=== PATIENT | male | born 1975 | race Caucasian/White ===

== ENCOUNTER 2020-12-20 18:34 | Inpatient (IN) | payer OTHER ==
[2020-12-20 19:19] VITALS: BMI 19.2
[2020-12-20] MEDS ORDERED: MAGNESIUM CITRATE 300 ML BOTTLE PO PRN (20:56)
[2020-12-20] MEDS ORDERED: MAGNESIUM HYDROX 2400MG/30ML ORAL SUSPENSION 30 ML CUP PO PRN (20:56)
[2020-12-20] MEDS ORDERED: NICOTINE POLACRILEX 2 MG GUM BC PRN (20:56)
[2020-12-20] MEDS ORDERED: LOPERAMIDE HCL 2 MG CAPSULE PO PRN (20:56)
[2020-12-20] MEDS ORDERED: P-EPHED 60MG/TRIPROLIDI 2.5MG TABLET PO PRN (20:56)
[2020-12-20] MEDS ORDERED: guaiFENesin 200 MG/10 ML 10 ML UNIT-DOSE CUPS PO PRN (20:56)
[2020-12-20] MEDS ORDERED: MAG HYDROX/AL HYDROX/SIMETH 30 ML UNIT-DOSE CUP PO PRN (20:56)
[2020-12-20] MEDS ORDERED: cloNIDine HCL 0.1 MG TABLET PO ONE (21:07)
[2020-12-20] MEDS ORDERED: MELATONIN 5 MG TABLETS PO SCH (22:00)
[2020-12-20] MEDS ORDERED: cloNIDine HCL 0.1 MG TABLET ONE (22:03)
[2020-12-20] MEDS: THIAMINE HCL 100 MG TABLET (FP) PO SCH (22:08)
[2020-12-20] MEDS ORDERED: TUBERCULIN PPD 5 TU/0.1ML VIAL ID ONE (23:20)
[2020-12-21] MEDS: PRENATAL VITAMINS W/ FOLIC ACID TABLET (FP) PO SCH (10:09)
[2020-12-21] MEDS: NICOTINE 21 MG/24 HOURS TOPICAL PATCH TD SCH (10:09)
[2020-12-21] MEDS: methaDONE HCL 40 MG DISPERSABLE TABLET PO SCH (10:10)
[2020-12-21 10:19] LABS: HEMATOCRIT 40.4 % (35.4-49); HEMOGLOBIN 13.8 GM/dL (11.7-16.9); MCH 31.9 pg (25.7-33.7); MCHC 34.1 g/dl (32.0-35.9); MEAN CELL VOLUME 93.7 fl (80-96); MEAN PLT VOLUME 7.8 fl (7.5-11.1); PLATELET COUNT 252 10^3/uL (134-434); RBC 4.31 M/mm3 (4.00-5.60); RDW 13.9 % (11.9-15.9); WHITE BLOOD COUNT 6.5 K/mm3 (4.0-10.0)
[2020-12-21 10:30] LABS: BLOOD UREA NITROGEN 21.2 mg/dL (7-18); CALCIUM 9.8 mg/dL (8.5-10.1)
[2020-12-21 10:33] LABS: CREATININE 0.8 mg/dL (0.55-1.3)
[2020-12-21 10:35] LABS: BILIRUBIN,TOTAL 0.3 mg/dL (0.2-1); TOT PROT 8.6 g/dl (6.4-8.2)
[2020-12-21 10:41] LABS: URINE APPEARANCE CLEAR; URINE BILIRUBIN NEGATIVE (NEGATIVE); URINE COLOR YELLOW; URINE GLUCOSE (UA) NEGATIVE (NEGATIVE); URINE KETONE TRACE (NEGATIVE); URINE LEUK ESTERASE NEGATIVE (NEGATIVE); URINE NITRITE NEGATIVE (NEGATIVE); URINE PROTEIN NEGATIVE (NEGATIVE); URINE UROBILINOGEN 0.2 mg/dL (0.2-1.0)
[2020-12-21] MEDS: NICOTINE 10 MG CARTRIDGE (INHALER) IH PRN (13:40)
[2020-12-21] MEDS: IBUPROFEN 400 MG TABLET (FP) PO PRN (17:10)
[2020-12-21] MEDS: QUEtiapine FUMARATE 100 MG TABLET (FP) PO SCH (21:23)
[2020-12-21] MEDS: THIAMINE HCL 100 MG TABLET (FP) PO SCH (21:23)
[2020-12-22] MEDS: methaDONE HCL 40 MG DISPERSABLE TABLET PO SCH (06:31)
[2020-12-22] MEDS: IBUPROFEN 400 MG TABLET (FP) PO PRN ×3 (06:33→21:14)
[2020-12-22] MEDS: NICOTINE 10 MG CARTRIDGE (INHALER) IH PRN ×4 (06:34→21:15)
[2020-12-22] MEDS: NICOTINE 21 MG/24 HOURS TOPICAL PATCH TD SCH (10:07)
[2020-12-22] MEDS: PRENATAL VITAMINS W/ FOLIC ACID TABLET (FP) PO SCH (10:07)
[2020-12-22] MEDS: THIAMINE HCL 100 MG TABLET (FP) PO SCH (21:14)
[2020-12-22] MEDS: QUEtiapine FUMARATE 100 MG TABLET (FP) PO SCH (21:14)
[2020-12-23] MEDS: methaDONE HCL 40 MG DISPERSABLE TABLET PO SCH (06:42)
[2020-12-23] MEDS: IBUPROFEN 400 MG TABLET (FP) PO PRN ×3 (06:43→21:13)
[2020-12-23] MEDS: NICOTINE 10 MG CARTRIDGE (INHALER) IH PRN ×5 (06:43→21:13)
[2020-12-23] MEDS: NICOTINE 21 MG/24 HOURS TOPICAL PATCH TD SCH (10:02)
[2020-12-23] MEDS: PRENATAL VITAMINS W/ FOLIC ACID TABLET (FP) PO SCH (10:02)
[2020-12-23] MEDS: QUEtiapine FUMARATE 100 MG TABLET (FP) PO SCH (21:12)
[2020-12-23] MEDS: THIAMINE HCL 100 MG TABLET (FP) PO SCH (21:12)
[2020-12-24] MEDS: NICOTINE 10 MG CARTRIDGE (INHALER) IH PRN ×4 (06:40→19:48)
[2020-12-24] MEDS: methaDONE HCL 40 MG DISPERSABLE TABLET PO SCH (06:40)
[2020-12-24] MEDS: IBUPROFEN 400 MG TABLET (FP) PO PRN ×2 (07:02→13:21)
[2020-12-24] MEDS: NICOTINE 21 MG/24 HOURS TOPICAL PATCH TD SCH (09:58)
[2020-12-24] MEDS: PRENATAL VITAMINS W/ FOLIC ACID TABLET (FP) PO SCH (09:58)
[2020-12-24] MEDS: ACETAMINOPHEN 325 MG TABLET (FP) PO PRN ×2 (09:59→21:02)
[2020-12-24] MEDS: THIAMINE HCL 100 MG TABLET (FP) PO SCH (21:02)
[2020-12-24] MEDS: QUEtiapine FUMARATE 100 MG TABLET (FP) PO SCH (21:02)
[2020-12-25] MEDS: methaDONE HCL 40 MG DISPERSABLE TABLET PO SCH (06:16)
[2020-12-25] MEDS: IBUPROFEN 400 MG TABLET (FP) PO PRN ×2 (06:16→14:13)
[2020-12-25] MEDS: NICOTINE 10 MG CARTRIDGE (INHALER) IH PRN ×5 (06:16→22:27)
[2020-12-25] MEDS: NICOTINE 21 MG/24 HOURS TOPICAL PATCH TD SCH (10:33)
[2020-12-25] MEDS: ACETAMINOPHEN 325 MG TABLET (FP) PO PRN ×2 (10:33→21:24)
[2020-12-25] MEDS: PRENATAL VITAMINS W/ FOLIC ACID TABLET (FP) PO SCH (10:33)
[2020-12-25] MEDS: QUEtiapine FUMARATE 100 MG TABLET (FP) PO SCH (21:24)
[2020-12-25] MEDS: THIAMINE HCL 100 MG TABLET (FP) PO SCH (21:24)
[2020-12-26] MEDS: IBUPROFEN 400 MG TABLET (FP) PO PRN ×3 (06:40→21:15)
[2020-12-26] MEDS: methaDONE HCL 40 MG DISPERSABLE TABLET PO SCH (06:40)
[2020-12-26] MEDS: NICOTINE 10 MG CARTRIDGE (INHALER) IH PRN ×5 (06:40→21:58)
[2020-12-26] MEDS: PRENATAL VITAMINS W/ FOLIC ACID TABLET (FP) PO SCH (09:56)
[2020-12-26] MEDS: NICOTINE 21 MG/24 HOURS TOPICAL PATCH TD SCH (09:56)
[2020-12-26] MEDS: ACETAMINOPHEN 325 MG TABLET (FP) PO PRN ×2 (09:57→18:31)
[2020-12-26] MEDS: traZODone HCL 100 MG TABLET (FP) PO SCH (21:14)
[2020-12-26] MEDS: THIAMINE HCL 100 MG TABLET (FP) PO SCH (21:15)
[2020-12-27] MEDS: methaDONE HCL 40 MG DISPERSABLE TABLET PO SCH (07:04)
[2020-12-27] MEDS: IBUPROFEN 400 MG TABLET (FP) PO PRN ×2 (07:06→16:33)
[2020-12-27] MEDS: PRENATAL VITAMINS W/ FOLIC ACID TABLET (FP) PO SCH (10:35)
[2020-12-27] MEDS: NICOTINE 21 MG/24 HOURS TOPICAL PATCH TD SCH (10:35)
[2020-12-27] MEDS: ACETAMINOPHEN 325 MG TABLET (FP) PO PRN ×2 (10:36→21:14)
[2020-12-27] MEDS: FOLIC ACID 1 MG TABLET (FP) PO SCH (10:36)
[2020-12-27] MEDS: NICOTINE 10 MG CARTRIDGE (INHALER) IH PRN ×3 (10:37→21:15)
[2020-12-27] MEDS: CYANOCOBALAMIN (VITAMIN B-12) 100 MCG TABLET PO SCH (10:37)
[2020-12-27] MEDS: traZODone HCL 100 MG TABLET (FP) PO SCH (21:14)
[2020-12-27] MEDS: THIAMINE HCL 100 MG TABLET (FP) PO SCH (21:14)
[2020-12-28] MEDS: methaDONE HCL 40 MG DISPERSABLE TABLET PO SCH (05:48)
[2020-12-28] MEDS: NICOTINE 10 MG CARTRIDGE (INHALER) IH PRN ×4 (05:48→21:25)
[2020-12-28] MEDS: NICOTINE 21 MG/24 HOURS TOPICAL PATCH TD SCH (10:26)
[2020-12-28] MEDS: CYANOCOBALAMIN (VITAMIN B-12) 100 MCG TABLET PO SCH (10:26)
[2020-12-28] MEDS: IBUPROFEN 400 MG TABLET (FP) PO PRN ×2 (10:26→17:09)
[2020-12-28] MEDS: FOLIC ACID 1 MG TABLET (FP) PO SCH (10:26)
[2020-12-28] MEDS: PRENATAL VITAMINS W/ FOLIC ACID TABLET (FP) PO SCH (10:26)
[2020-12-28] MEDS: ACETAMINOPHEN 325 MG TABLET (FP) PO PRN ×2 (14:28→21:24)
[2020-12-28] MEDS: THIAMINE HCL 100 MG TABLET (FP) PO SCH (21:23)
[2020-12-28] MEDS: traZODone HCL 100 MG TABLET (FP) PO SCH (21:23)
[2020-12-29] MEDS: IBUPROFEN 400 MG TABLET (FP) PO PRN ×2 (08:01→21:11)
[2020-12-29] MEDS: NICOTINE 10 MG CARTRIDGE (INHALER) IH PRN ×3 (08:02→22:06)
[2020-12-29] MEDS: methaDONE HCL 40 MG DISPERSABLE TABLET PO SCH (08:04)
[2020-12-29] MEDS: NICOTINE 21 MG/24 HOURS TOPICAL PATCH TD SCH (10:22)
[2020-12-29] MEDS: ACETAMINOPHEN 325 MG TABLET (FP) PO PRN ×2 (10:22→16:28)
[2020-12-29] MEDS: CYANOCOBALAMIN (VITAMIN B-12) 100 MCG TABLET PO SCH (10:22)
[2020-12-29] MEDS: FOLIC ACID 1 MG TABLET (FP) PO SCH (10:22)
[2020-12-29] MEDS: PRENATAL VITAMINS W/ FOLIC ACID TABLET (FP) PO SCH (10:22)
[2020-12-29] MEDS: THIAMINE HCL 100 MG TABLET (FP) PO SCH (21:11)
[2020-12-29] MEDS: traZODone HCL 100 MG TABLET (FP) PO SCH (21:11)
[2020-12-30] MEDS: IBUPROFEN 400 MG TABLET (FP) PO PRN ×2 (06:05→15:13)
[2020-12-30] MEDS: NICOTINE 10 MG CARTRIDGE (INHALER) IH PRN ×4 (06:05→21:27)
[2020-12-30] MEDS: methaDONE HCL 40 MG DISPERSABLE TABLET PO SCH (06:05)
[2020-12-30] MEDS: NICOTINE 21 MG/24 HOURS TOPICAL PATCH TD SCH (10:16)
[2020-12-30] MEDS: FOLIC ACID 1 MG TABLET (FP) PO SCH (10:16)
[2020-12-30] MEDS: PRENATAL VITAMINS W/ FOLIC ACID TABLET (FP) PO SCH (10:16)
[2020-12-30] MEDS: CYANOCOBALAMIN (VITAMIN B-12) 100 MCG TABLET PO SCH (10:17)
[2020-12-30] MEDS: ACETAMINOPHEN 325 MG TABLET (FP) PO PRN ×2 (10:17→21:25)
[2020-12-30] MEDS: THIAMINE HCL 100 MG TABLET (FP) PO SCH (21:25)
[2020-12-30] MEDS: traZODone HCL 100 MG TABLET (FP) PO SCH (21:26)
[2020-12-31] MEDS: NICOTINE 10 MG CARTRIDGE (INHALER) IH PRN ×5 (06:10→21:22)
[2020-12-31] MEDS: IBUPROFEN 400 MG TABLET (FP) PO PRN ×2 (06:10→13:42)
[2020-12-31] MEDS: methaDONE HCL 40 MG DISPERSABLE TABLET PO SCH (06:10)
[2020-12-31] MEDS: FOLIC ACID 1 MG TABLET (FP) PO SCH (10:13)
[2020-12-31] MEDS: NICOTINE 21 MG/24 HOURS TOPICAL PATCH TD SCH (10:13)
[2020-12-31] MEDS: CYANOCOBALAMIN (VITAMIN B-12) 100 MCG TABLET PO SCH (10:13)
[2020-12-31] MEDS: ACETAMINOPHEN 325 MG TABLET (FP) PO PRN ×3 (10:13→21:23)
[2020-12-31] MEDS: PRENATAL VITAMINS W/ FOLIC ACID TABLET (FP) PO SCH (10:13)
[2020-12-31] MEDS: traZODone HCL 100 MG TABLET (FP) PO SCH (21:22)
[2020-12-31] MEDS: THIAMINE HCL 100 MG TABLET (FP) PO SCH (21:22)
[2021-01-01] MEDS: methaDONE HCL 40 MG DISPERSABLE TABLET PO SCH (06:40)
[2021-01-01] MEDS: NICOTINE 10 MG CARTRIDGE (INHALER) IH PRN ×5 (06:41→22:28)
[2021-01-01] MEDS: IBUPROFEN 400 MG TABLET (FP) PO PRN ×3 (06:41→21:19)
[2021-01-01] MEDS: FOLIC ACID 1 MG TABLET (FP) PO SCH (10:23)
[2021-01-01] MEDS: NICOTINE 21 MG/24 HOURS TOPICAL PATCH TD SCH (10:23)
[2021-01-01] MEDS: CYANOCOBALAMIN (VITAMIN B-12) 100 MCG TABLET PO SCH (10:23)
[2021-01-01] MEDS: PRENATAL VITAMINS W/ FOLIC ACID TABLET (FP) PO SCH (10:23)
[2021-01-01] MEDS: ACETAMINOPHEN 325 MG TABLET (FP) PO PRN ×2 (10:24→18:19)
[2021-01-01] MEDS: GABAPENTIN 300 MG CAPSULE PO SCH ×2 (14:14→21:18)
[2021-01-01] MEDS: METHOCARBAMOL 750 MG TABLET PO SCH ×2 (14:37→21:18)
[2021-01-01] MEDS: THIAMINE HCL 100 MG TABLET (FP) PO SCH (21:18)
[2021-01-01] MEDS: traZODone HCL 100 MG TABLET (FP) PO SCH (21:18)
[2021-01-02] MEDS: methaDONE HCL 40 MG DISPERSABLE TABLET PO SCH (06:00)
[2021-01-02] MEDS: METHOCARBAMOL 750 MG TABLET PO SCH ×3 (06:08→21:18)
[2021-01-02] MEDS: GABAPENTIN 300 MG CAPSULE PO SCH ×3 (06:08→21:18)
[2021-01-02] MEDS: IBUPROFEN 400 MG TABLET (FP) PO PRN ×3 (06:08→21:18)
[2021-01-02] MEDS: FOLIC ACID 1 MG TABLET (FP) PO SCH (10:34)
[2021-01-02] MEDS: CYANOCOBALAMIN (VITAMIN B-12) 100 MCG TABLET PO SCH (10:35)
[2021-01-02] MEDS: PRENATAL VITAMINS W/ FOLIC ACID TABLET (FP) PO SCH (10:35)
[2021-01-02] MEDS: ACETAMINOPHEN 325 MG TABLET (FP) PO PRN ×2 (10:35→17:22)
[2021-01-02] MEDS: NICOTINE 21 MG/24 HOURS TOPICAL PATCH TD SCH (10:35)
[2021-01-02] MEDS: NICOTINE 10 MG CARTRIDGE (INHALER) IH PRN ×4 (10:37→21:44)
[2021-01-02] MEDS: traZODone HCL 100 MG TABLET (FP) PO SCH (21:18)
[2021-01-02] MEDS: THIAMINE HCL 100 MG TABLET (FP) PO SCH (21:18)
[2021-01-03] MEDS: GABAPENTIN 300 MG CAPSULE PO SCH ×3 (06:03→21:25)
[2021-01-03] MEDS: METHOCARBAMOL 750 MG TABLET PO SCH ×3 (06:03→21:26)
[2021-01-03] MEDS: IBUPROFEN 400 MG TABLET (FP) PO PRN ×3 (06:03→21:26)
[2021-01-03] MEDS: methaDONE HCL 40 MG DISPERSABLE TABLET PO SCH (06:03)
[2021-01-03] MEDS: NICOTINE 10 MG CARTRIDGE (INHALER) IH PRN ×4 (06:04→18:05)
[2021-01-03] MEDS: FOLIC ACID 1 MG TABLET (FP) PO SCH (10:19)
[2021-01-03] MEDS: NICOTINE 21 MG/24 HOURS TOPICAL PATCH TD SCH (10:19)
[2021-01-03] MEDS: CYANOCOBALAMIN (VITAMIN B-12) 100 MCG TABLET PO SCH (10:19)
[2021-01-03] MEDS: PRENATAL VITAMINS W/ FOLIC ACID TABLET (FP) PO SCH (10:19)
[2021-01-03] MEDS: ACETAMINOPHEN 325 MG TABLET (FP) PO PRN ×2 (10:19→18:07)
[2021-01-03] MEDS ORDERED: PT OWN MED DRAWER 7, Y5N ONE (13:37)
[2021-01-03] MEDS: THIAMINE HCL 100 MG TABLET (FP) PO SCH (21:26)
[2021-01-03] MEDS: traZODone HCL 100 MG TABLET (FP) PO SCH (21:26)
[2021-01-04] MEDS: GABAPENTIN 300 MG CAPSULE PO SCH ×3 (06:17→21:15)
[2021-01-04] MEDS: METHOCARBAMOL 750 MG TABLET PO SCH ×3 (06:17→21:15)
[2021-01-04] MEDS: IBUPROFEN 400 MG TABLET (FP) PO PRN ×3 (06:17→19:28)
[2021-01-04] MEDS: methaDONE HCL 40 MG DISPERSABLE TABLET PO SCH (06:17)
[2021-01-04] MEDS: CYANOCOBALAMIN (VITAMIN B-12) 100 MCG TABLET PO SCH (10:12)
[2021-01-04] MEDS: ACETAMINOPHEN 325 MG TABLET (FP) PO PRN ×2 (10:12→17:15)
[2021-01-04] MEDS: PRENATAL VITAMINS W/ FOLIC ACID TABLET (FP) PO SCH (10:12)
[2021-01-04] MEDS: NICOTINE 21 MG/24 HOURS TOPICAL PATCH TD SCH (10:12)
[2021-01-04] MEDS: FOLIC ACID 1 MG TABLET (FP) PO SCH (10:12)
[2021-01-04] MEDS: NICOTINE 10 MG CARTRIDGE (INHALER) IH PRN ×3 (10:12→21:16)
[2021-01-04] MEDS: THIAMINE HCL 100 MG TABLET (FP) PO SCH (21:15)
[2021-01-04] MEDS: traZODone HCL 100 MG TABLET (FP) PO SCH (21:15)
[2021-01-05] MEDS: GABAPENTIN 300 MG CAPSULE PO SCH ×3 (05:55→21:23)
[2021-01-05] MEDS: IBUPROFEN 400 MG TABLET (FP) PO PRN ×2 (05:55→21:23)
[2021-01-05] MEDS: METHOCARBAMOL 750 MG TABLET PO SCH ×3 (05:55→21:24)
[2021-01-05] MEDS: NICOTINE 10 MG CARTRIDGE (INHALER) IH PRN ×5 (05:57→22:21)
[2021-01-05] MEDS: methaDONE HCL 40 MG DISPERSABLE TABLET PO SCH (06:45)
[2021-01-05] MEDS ORDERED: PT OWN MED DRAWER 7, Y5N ONE (09:00)
[2021-01-05] MEDS: ACETAMINOPHEN 325 MG TABLET (FP) PO PRN ×2 (10:24→18:27)
[2021-01-05] MEDS: FOLIC ACID 1 MG TABLET (FP) PO SCH (10:24)
[2021-01-05] MEDS: CYANOCOBALAMIN (VITAMIN B-12) 100 MCG TABLET PO SCH (10:25)
[2021-01-05] MEDS: PRENATAL VITAMINS W/ FOLIC ACID TABLET (FP) PO SCH (10:25)
[2021-01-05] MEDS: NICOTINE 21 MG/24 HOURS TOPICAL PATCH TD SCH (10:25)
[2021-01-05] MEDS: traZODone HCL 100 MG TABLET (FP) PO SCH (21:23)
[2021-01-05] MEDS: THIAMINE HCL 100 MG TABLET (FP) PO SCH (21:24)
[2021-01-06] MEDS: METHOCARBAMOL 750 MG TABLET PO SCH ×3 (06:31→21:16)
[2021-01-06] MEDS: GABAPENTIN 300 MG CAPSULE PO SCH ×3 (06:31→21:16)
[2021-01-06] MEDS: methaDONE HCL 40 MG DISPERSABLE TABLET PO SCH (06:31)
[2021-01-06] MEDS: IBUPROFEN 400 MG TABLET (FP) PO PRN ×3 (06:31→21:16)
[2021-01-06] MEDS: NICOTINE 10 MG CARTRIDGE (INHALER) IH PRN ×5 (06:32→22:59)
[2021-01-06] MEDS: FOLIC ACID 1 MG TABLET (FP) PO SCH (10:26)
[2021-01-06] MEDS: CYANOCOBALAMIN (VITAMIN B-12) 100 MCG TABLET PO SCH (10:26)
[2021-01-06] MEDS: PRENATAL VITAMINS W/ FOLIC ACID TABLET (FP) PO SCH (10:26)
[2021-01-06] MEDS: ACETAMINOPHEN 325 MG TABLET (FP) PO PRN ×2 (10:26→18:13)
[2021-01-06] MEDS: NICOTINE 21 MG/24 HOURS TOPICAL PATCH TD SCH (10:26)
[2021-01-06] MEDS: THIAMINE HCL 100 MG TABLET (FP) PO SCH (21:16)
[2021-01-06] MEDS: AMITRIPTYLINE HCL 100 MG TABLET PO SCH (21:17)
[2021-01-07] MEDS: IBUPROFEN 400 MG TABLET (FP) PO PRN ×2 (06:23→21:18)
[2021-01-07] MEDS: GABAPENTIN 300 MG CAPSULE PO SCH ×3 (06:23→21:17)
[2021-01-07] MEDS: methaDONE HCL 40 MG DISPERSABLE TABLET PO SCH (06:23)
[2021-01-07] MEDS: METHOCARBAMOL 750 MG TABLET PO SCH ×3 (06:23→21:17)
[2021-01-07] MEDS: NICOTINE 10 MG CARTRIDGE (INHALER) IH PRN ×5 (06:24→22:14)
[2021-01-07] MEDS: PRENATAL VITAMINS W/ FOLIC ACID TABLET (FP) PO SCH (10:33)
[2021-01-07] MEDS: CYANOCOBALAMIN (VITAMIN B-12) 100 MCG TABLET PO SCH (10:33)
[2021-01-07] MEDS: FOLIC ACID 1 MG TABLET (FP) PO SCH (10:33)
[2021-01-07] MEDS: NICOTINE 21 MG/24 HOURS TOPICAL PATCH TD SCH (10:34)
[2021-01-07] MEDS: ACETAMINOPHEN 325 MG TABLET (FP) PO PRN ×2 (10:34→18:56)
[2021-01-07] MEDS: THIAMINE HCL 100 MG TABLET (FP) PO SCH (21:17)
[2021-01-07] MEDS: AMITRIPTYLINE HCL 100 MG TABLET PO SCH (21:17)
[2021-01-08] MEDS: IBUPROFEN 400 MG TABLET (FP) PO PRN ×3 (06:12→21:25)
[2021-01-08] MEDS: GABAPENTIN 300 MG CAPSULE PO SCH ×3 (06:12→21:22)
[2021-01-08] MEDS: METHOCARBAMOL 750 MG TABLET PO SCH ×3 (06:12→21:24)
[2021-01-08] MEDS: methaDONE HCL 40 MG DISPERSABLE TABLET PO SCH (06:12)
[2021-01-08] MEDS: NICOTINE 10 MG CARTRIDGE (INHALER) IH PRN ×4 (06:13→19:11)
[2021-01-08] MEDS: PRENATAL VITAMINS W/ FOLIC ACID TABLET (FP) PO SCH (10:39)
[2021-01-08] MEDS: FOLIC ACID 1 MG TABLET (FP) PO SCH (10:40)
[2021-01-08] MEDS: CYANOCOBALAMIN (VITAMIN B-12) 100 MCG TABLET PO SCH (10:40)
[2021-01-08] MEDS: ACETAMINOPHEN 325 MG TABLET (FP) PO PRN ×2 (10:41→19:13)
[2021-01-08] MEDS: NICOTINE 21 MG/24 HOURS TOPICAL PATCH TD SCH (10:42)
[2021-01-08] MEDS: AMITRIPTYLINE HCL 100 MG TABLET PO SCH (21:22)
[2021-01-08] MEDS: THIAMINE HCL 100 MG TABLET (FP) PO SCH (21:23)
[2021-01-09] MEDS: METHOCARBAMOL 750 MG TABLET PO SCH ×3 (06:03→21:10)
[2021-01-09] MEDS: GABAPENTIN 300 MG CAPSULE PO SCH ×3 (06:03→21:10)
[2021-01-09] MEDS: methaDONE HCL 40 MG DISPERSABLE TABLET PO SCH (06:03)
[2021-01-09] MEDS: IBUPROFEN 400 MG TABLET (FP) PO PRN ×3 (06:03→21:10)
[2021-01-09] MEDS: NICOTINE 10 MG CARTRIDGE (INHALER) IH PRN ×5 (06:04→22:31)
[2021-01-09] MEDS: CYANOCOBALAMIN (VITAMIN B-12) 100 MCG TABLET PO SCH (10:09)
[2021-01-09] MEDS: PRENATAL VITAMINS W/ FOLIC ACID TABLET (FP) PO SCH (10:09)
[2021-01-09] MEDS: FOLIC ACID 1 MG TABLET (FP) PO SCH (10:10)
[2021-01-09] MEDS: NICOTINE 21 MG/24 HOURS TOPICAL PATCH TD SCH (10:10)
[2021-01-09] MEDS: ACETAMINOPHEN 325 MG TABLET (FP) PO PRN (18:17)
[2021-01-09] MEDS: THIAMINE HCL 100 MG TABLET (FP) PO SCH (21:10)
[2021-01-09] MEDS: AMITRIPTYLINE HCL 100 MG TABLET PO SCH (21:10)
[2021-01-10] MEDS: GABAPENTIN 300 MG CAPSULE PO SCH ×3 (06:22→21:11)
[2021-01-10] MEDS: METHOCARBAMOL 750 MG TABLET PO SCH ×3 (06:22→21:11)
[2021-01-10] MEDS: methaDONE HCL 40 MG DISPERSABLE TABLET PO SCH (06:22)
[2021-01-10] MEDS: IBUPROFEN 400 MG TABLET (FP) PO PRN ×3 (06:22→21:12)
[2021-01-10] MEDS: NICOTINE 10 MG CARTRIDGE (INHALER) IH PRN ×4 (06:24→19:08)
[2021-01-10] MEDS: PRENATAL VITAMINS W/ FOLIC ACID TABLET (FP) PO SCH (10:45)
[2021-01-10] MEDS: FOLIC ACID 1 MG TABLET (FP) PO SCH (10:46)
[2021-01-10] MEDS: CYANOCOBALAMIN (VITAMIN B-12) 100 MCG TABLET PO SCH (10:46)
[2021-01-10] MEDS: NICOTINE 21 MG/24 HOURS TOPICAL PATCH TD SCH (10:46)
[2021-01-10] MEDS: ACETAMINOPHEN 325 MG TABLET (FP) PO PRN ×2 (10:48→19:19)
[2021-01-10] MEDS: THIAMINE HCL 100 MG TABLET (FP) PO SCH (21:11)
[2021-01-10] MEDS: AMITRIPTYLINE HCL 100 MG TABLET PO SCH (21:12)
[2021-01-11] MEDS: IBUPROFEN 400 MG TABLET (FP) PO PRN ×3 (06:07→21:13)
[2021-01-11] MEDS: METHOCARBAMOL 750 MG TABLET PO SCH ×3 (06:07→21:12)
[2021-01-11] MEDS: methaDONE HCL 40 MG DISPERSABLE TABLET PO SCH (06:07)
[2021-01-11] MEDS: GABAPENTIN 300 MG CAPSULE PO SCH ×3 (06:07→21:12)
[2021-01-11] MEDS: NICOTINE 10 MG CARTRIDGE (INHALER) IH PRN ×5 (06:08→22:36)
[2021-01-11] MEDS: CYANOCOBALAMIN (VITAMIN B-12) 100 MCG TABLET PO SCH (10:46)
[2021-01-11] MEDS: PRENATAL VITAMINS W/ FOLIC ACID TABLET (FP) PO SCH (10:46)
[2021-01-11] MEDS: NICOTINE 21 MG/24 HOURS TOPICAL PATCH TD SCH (10:46)
[2021-01-11] MEDS: FOLIC ACID 1 MG TABLET (FP) PO SCH (10:46)
[2021-01-11] MEDS: ACETAMINOPHEN 325 MG TABLET (FP) PO PRN ×2 (10:48→18:43)
[2021-01-11] MEDS: THIAMINE HCL 100 MG TABLET (FP) PO SCH (21:12)
[2021-01-11] MEDS: AMITRIPTYLINE HCL 100 MG TABLET PO SCH (21:12)
[2021-01-12] MEDS: METHOCARBAMOL 750 MG TABLET PO SCH ×3 (06:22→21:11)
[2021-01-12] MEDS: GABAPENTIN 300 MG CAPSULE PO SCH ×3 (06:22→21:11)
[2021-01-12] MEDS: methaDONE HCL 40 MG DISPERSABLE TABLET PO SCH (06:22)
[2021-01-12] MEDS: IBUPROFEN 400 MG TABLET (FP) PO PRN ×3 (06:22→21:11)
[2021-01-12] MEDS: NICOTINE 10 MG CARTRIDGE (INHALER) IH PRN ×4 (06:26→18:19)
[2021-01-12] MEDS: NICOTINE 21 MG/24 HOURS TOPICAL PATCH TD SCH (10:11)
[2021-01-12] MEDS: PRENATAL VITAMINS W/ FOLIC ACID TABLET (FP) PO SCH (10:11)
[2021-01-12] MEDS: FOLIC ACID 1 MG TABLET (FP) PO SCH (10:11)
[2021-01-12] MEDS: CYANOCOBALAMIN (VITAMIN B-12) 100 MCG TABLET PO SCH (10:12)
[2021-01-12] MEDS: ACETAMINOPHEN 325 MG TABLET (FP) PO PRN ×2 (10:13→18:19)
[2021-01-12] MEDS: AMITRIPTYLINE HCL 100 MG TABLET PO SCH (21:10)
[2021-01-12] MEDS: THIAMINE HCL 100 MG TABLET (FP) PO SCH (21:11)
[2021-01-13] MEDS ORDERED: PT OWN MED DRAWER 7, Y5N ONE (03:53)
[2021-01-13] MEDS: METHOCARBAMOL 750 MG TABLET PO SCH ×3 (06:19→21:21)
[2021-01-13] MEDS: methaDONE HCL 40 MG DISPERSABLE TABLET PO SCH (06:19)
[2021-01-13] MEDS: GABAPENTIN 300 MG CAPSULE PO SCH ×3 (06:19→21:22)
[2021-01-13] MEDS: IBUPROFEN 400 MG TABLET (FP) PO PRN ×3 (06:19→21:22)
[2021-01-13] MEDS: NICOTINE 10 MG CARTRIDGE (INHALER) IH PRN ×3 (06:21→18:02)
[2021-01-13] MEDS: FOLIC ACID 1 MG TABLET (FP) PO SCH (09:58)
[2021-01-13] MEDS: PRENATAL VITAMINS W/ FOLIC ACID TABLET (FP) PO SCH (09:58)
[2021-01-13] MEDS: NICOTINE 21 MG/24 HOURS TOPICAL PATCH TD SCH (09:58)
[2021-01-13] MEDS: CYANOCOBALAMIN (VITAMIN B-12) 100 MCG TABLET PO SCH (09:59)
[2021-01-13] MEDS: ACETAMINOPHEN 325 MG TABLET (FP) PO PRN ×2 (10:01→18:03)
[2021-01-13] MEDS: AMITRIPTYLINE HCL 100 MG TABLET PO SCH (21:22)
[2021-01-13] MEDS: THIAMINE HCL 100 MG TABLET (FP) PO SCH (21:22)
[2021-01-14] MEDS: methaDONE HCL 40 MG DISPERSABLE TABLET PO SCH (06:03)
[2021-01-14] MEDS: IBUPROFEN 400 MG TABLET (FP) PO PRN ×3 (06:03→21:15)
[2021-01-14] MEDS: GABAPENTIN 300 MG CAPSULE PO SCH ×3 (06:03→21:14)
[2021-01-14] MEDS: METHOCARBAMOL 750 MG TABLET PO SCH ×3 (06:03→21:14)
[2021-01-14] MEDS: NICOTINE 10 MG CARTRIDGE (INHALER) IH PRN ×4 (06:04→18:43)
[2021-01-14] MEDS: PRENATAL VITAMINS W/ FOLIC ACID TABLET (FP) PO SCH (10:04)
[2021-01-14] MEDS: ACETAMINOPHEN 325 MG TABLET (FP) PO PRN (10:04)
[2021-01-14] MEDS: FOLIC ACID 1 MG TABLET (FP) PO SCH (10:05)
[2021-01-14] MEDS: NICOTINE 21 MG/24 HOURS TOPICAL PATCH TD SCH (10:05)
[2021-01-14] MEDS: CYANOCOBALAMIN (VITAMIN B-12) 100 MCG TABLET PO SCH (10:05)
[2021-01-14] MEDS: AMITRIPTYLINE HCL 100 MG TABLET PO SCH (21:14)
[2021-01-14] MEDS: THIAMINE HCL 100 MG TABLET (FP) PO SCH (21:14)
[2021-01-15] MEDS: methaDONE HCL 40 MG DISPERSABLE TABLET PO SCH (06:19)
[2021-01-15] MEDS: IBUPROFEN 400 MG TABLET (FP) PO PRN ×3 (06:19→21:24)
[2021-01-15] MEDS: METHOCARBAMOL 750 MG TABLET PO SCH ×3 (06:19→21:23)
[2021-01-15] MEDS: GABAPENTIN 300 MG CAPSULE PO SCH ×3 (06:19→21:24)
[2021-01-15] MEDS: NICOTINE 10 MG CARTRIDGE (INHALER) IH PRN ×4 (06:29→18:09)
[2021-01-15] MEDS: PRENATAL VITAMINS W/ FOLIC ACID TABLET (FP) PO SCH (10:11)
[2021-01-15] MEDS: NICOTINE 21 MG/24 HOURS TOPICAL PATCH TD SCH (10:11)
[2021-01-15] MEDS: FOLIC ACID 1 MG TABLET (FP) PO SCH (10:11)
[2021-01-15] MEDS: CYANOCOBALAMIN (VITAMIN B-12) 100 MCG TABLET PO SCH (10:11)
[2021-01-15] MEDS: ACETAMINOPHEN 325 MG TABLET (FP) PO PRN ×2 (10:12→18:09)
[2021-01-15] MEDS ORDERED: PT OWN MED DRAWER 7, Y5N ONE (14:01)
[2021-01-15] MEDS: AMITRIPTYLINE HCL 100 MG TABLET PO SCH (21:23)
[2021-01-15] MEDS: THIAMINE HCL 100 MG TABLET (FP) PO SCH (21:23)
[2021-01-16] MEDS: IBUPROFEN 400 MG TABLET (FP) PO PRN (06:12)
[2021-01-16] MEDS: methaDONE HCL 40 MG DISPERSABLE TABLET PO SCH (06:12)
[2021-01-16] MEDS: METHOCARBAMOL 750 MG TABLET PO SCH (06:12)
[2021-01-16] MEDS: GABAPENTIN 300 MG CAPSULE PO SCH (06:12)
[2021-01-16] MEDS: NICOTINE 10 MG CARTRIDGE (INHALER) IH PRN (06:13)
[2021-01-16 06:45] VITALS: BP 122/87; PULSE 98; TEMP 99
[2021-01-16] MEDS: CYANOCOBALAMIN (VITAMIN B-12) 100 MCG TABLET PO SCH (09:18)
[2021-01-16] MEDS: FOLIC ACID 1 MG TABLET (FP) PO SCH (09:18)
[2021-01-16] MEDS: PRENATAL VITAMINS W/ FOLIC ACID TABLET (FP) PO SCH (09:18)
[2021-01-16] MEDS: ACETAMINOPHEN 325 MG TABLET (FP) PO PRN (09:19)
[2021-01-16] MEDS: NICOTINE 21 MG/24 HOURS TOPICAL PATCH TD SCH (09:20)
== END 2021-01-16 09:29 | disposition home or self-care (01) | DRG 895 ==
LOC: YASAS 18:34 → Y3W 21:42
PROVIDERS: ADMIT Allergy & Immunology; ATTEND Allergy & Immunology
PROC: HZ42ZZZ Group Counseling for Substance Abuse Treatment, Cognitive-Behavioral (ICD-10-PCS; principal; 2020-12-20)
DX: F10.20 Alcohol dependence, uncomplicated (principal); F11.20 Opioid dependence, uncomplicated; F19.282 Other psychoactive substance dependence with psychoactive substance-induced sleep disorder; F17.210 Nicotine dependence, cigarettes, uncomplicated; F32.A Depression, unspecified; F43.10 Post-traumatic stress disorder, unspecified; F19.24 Other psychoactive substance dependence with psychoactive substance-induced mood disorder; F41.9 Anxiety disorder, unspecified; F90.9 Attention-deficit hyperactivity disorder, unspecified type; I10 Essential (primary) hypertension; G40.909 Epilepsy, unspecified, not intractable, without status epilepticus; B18.2 Chronic viral hepatitis C; R00.0 Tachycardia, unspecified; G89.29 Other chronic pain; M19.90 Unspecified osteoarthritis, unspecified site; Z87.820 Personal history of traumatic brain injury; Z88.8 Allergy status to other drugs, medicaments and biological substances; Z56.0 Unemployment, unspecified; Z59.02 Unsheltered homelessness
CPT/HCPCS: 36415; 80053; 81003; 85027; 86780; 87811; C9803; J0735; U0003; U0005

== ENCOUNTER 2021-07-12 13:42 | Inpatient (IN) | payer OTHER ==
[2021-07-12 14:05] VITALS: BMI 20.9
[2021-07-12] MEDS ORDERED: guaiFENesin 200 MG/10 ML 10 ML UNIT-DOSE CUPS PO PRN (14:40)
[2021-07-12] MEDS ORDERED: MAG HYDROX/AL HYDROX/SIMETH 30 ML UNIT-DOSE CUP PO PRN (14:40)
[2021-07-12] MEDS ORDERED: P-EPHED 60MG/TRIPROLIDI 2.5MG TABLET PO PRN (14:40)
[2021-07-12] MEDS ORDERED: LOPERAMIDE HCL 2 MG CAPSULE PO PRN (14:40)
[2021-07-12] MEDS ORDERED: NALOXONE HCL (KLOXXADO) 8 MG SPRAY NS PRN (14:40)
[2021-07-12] MEDS ORDERED: MAGNESIUM CITRATE 300 ML BOTTLE PO PRN (14:40)
[2021-07-12] MEDS: NICOTINE 21 MG/24 HOURS TOPICAL PATCH TD SCH (17:10)
[2021-07-12] MEDS: PANTOPRAZOLE 40 MG TABLET PO SCH (17:11)
[2021-07-12] MEDS: PRENATAL VITAMINS W/ FOLIC ACID TABLET (FP) PO SCH (17:11)
[2021-07-12] MEDS: NICOTINE 10 MG CARTRIDGE (INHALER) IH PRN ×2 (17:47→21:04)
[2021-07-12] MEDS: hydrOXYzine PAMOATE 25 MG CAPSULE (FP) PO SCH ×2 (17:48→21:04)
[2021-07-12] MEDS: QUEtiapine FUMARATE 100 MG TABLET (FP) PO SCH (21:03)
[2021-07-12] MEDS: MELATONIN 5 MG TABLETS PO SCH (21:03)
[2021-07-12] MEDS: GABAPENTIN 300 MG CAPSULE PO SCH (21:03)
[2021-07-12] MEDS: THIAMINE HCL 100 MG TABLET (FP) PO SCH (21:04)
[2021-07-12] MEDS: IBUPROFEN 400 MG TABLET (FP) PO PRN (21:05)
[2021-07-13] MEDS: GABAPENTIN 300 MG CAPSULE PO SCH ×3 (06:17→21:31)
[2021-07-13] MEDS: NICOTINE 10 MG CARTRIDGE (INHALER) IH PRN ×4 (06:18→21:32)
[2021-07-13] MEDS: hydrOXYzine PAMOATE 25 MG CAPSULE (FP) PO SCH ×5 (06:18→21:31)
[2021-07-13] MEDS: IBUPROFEN 400 MG TABLET (FP) PO PRN ×3 (06:19→21:30)
[2021-07-13] MEDS ORDERED: methaDONE HCL 10 MG TABLET PO ONE ×2 (09:32)
[2021-07-13] MEDS: NICOTINE 21 MG/24 HOURS TOPICAL PATCH TD SCH (10:04)
[2021-07-13] MEDS ORDERED: methaDONE HCL 10 MG TABLET ONE (10:05)
[2021-07-13] MEDS ORDERED: methaDONE HCL 40 MG DISPERSABLE TABLET ONE (10:06)
[2021-07-13] MEDS: PRENATAL VITAMINS W/ FOLIC ACID TABLET (FP) PO SCH (10:07)
[2021-07-13] MEDS: PANTOPRAZOLE 40 MG TABLET PO SCH (10:07)
[2021-07-13] MEDS: ACETAMINOPHEN 325 MG TABLET (FP) PO PRN ×2 (10:08→18:22)
[2021-07-13 14:38] LABS: URINE APPEARANCE CLEAR; URINE BILIRUBIN NEGATIVE (NEGATIVE); URINE COLOR YELLOW; URINE GLUCOSE (UA) NEGATIVE (NEGATIVE); URINE KETONE NEGATIVE (NEGATIVE); URINE LEUK ESTERASE NEGATIVE (NEGATIVE); URINE NITRITE NEGATIVE (NEGATIVE); URINE PROTEIN NEGATIVE (NEGATIVE); URINE UROBILINOGEN 0.2 mg/dL (0.2-1.0)
[2021-07-13] MEDS: QUEtiapine FUMARATE 100 MG TABLET (FP) PO SCH (21:31)
[2021-07-13] MEDS: THIAMINE HCL 100 MG TABLET (FP) PO SCH (21:31)
[2021-07-13] MEDS: MELATONIN 5 MG TABLETS PO SCH (21:31)
[2021-07-14] MEDS ORDERED: methaDONE HCL 10 MG TABLET PO SCH (06:00)
[2021-07-14] MEDS: NICOTINE 10 MG CARTRIDGE (INHALER) IH PRN ×5 (06:22→21:17)
[2021-07-14] MEDS: GABAPENTIN 300 MG CAPSULE PO SCH ×3 (06:22→21:18)
[2021-07-14] MEDS: hydrOXYzine PAMOATE 25 MG CAPSULE (FP) PO SCH ×5 (06:23→21:18)
[2021-07-14] MEDS ORDERED: methaDONE HCL 40 MG DISPERSABLE TABLET ONE (06:24)
[2021-07-14] MEDS ORDERED: methaDONE HCL 10 MG TABLET ONE (06:24)
[2021-07-14] MEDS: IBUPROFEN 400 MG TABLET (FP) PO PRN ×3 (06:25→21:19)
[2021-07-14] MEDS: PRENATAL VITAMINS W/ FOLIC ACID TABLET (FP) PO SCH (10:01)
[2021-07-14] MEDS: PANTOPRAZOLE 40 MG TABLET PO SCH (10:02)
[2021-07-14] MEDS: NICOTINE 21 MG/24 HOURS TOPICAL PATCH TD SCH (10:02)
[2021-07-14] MEDS: ACETAMINOPHEN 325 MG TABLET (FP) PO PRN ×2 (10:03→17:51)
[2021-07-14 10:42] LABS: HEMATOCRIT 34.6 % (35.4-49); HEMOGLOBIN 11.4 GM/dL (11.7-16.9); MCH 31.9 pg (25.7-33.7); MEAN CELL VOLUME 96.6 fl (80-96); MEAN PLT VOLUME 7.8 fl (7.5-11.1); PLATELET COUNT 307 10^3/uL (134-434); RBC 3.58 M/mm3 (4.00-5.60); RDW 16.9 % (11.9-15.9); WHITE BLOOD COUNT 6.6 K/mm3 (4.0-10.0)
[2021-07-14 11:06] LABS: CALCIUM 9.3 mg/dL (8.5-10.1)
[2021-07-14 11:07] LABS: BLOOD UREA NITROGEN 16.3 mg/dL (7-18)
[2021-07-14 11:09] LABS: CREATININE 0.7 mg/dL (0.55-1.3)
[2021-07-14 11:11] LABS: BILIRUBIN,TOTAL 0.5 mg/dL (0.2-1)
[2021-07-14 11:12] LABS: TOT PROT 6.4 g/dl (6.4-8.2)
[2021-07-14] MEDS: THIAMINE HCL 100 MG TABLET (FP) PO SCH (21:18)
[2021-07-14] MEDS: QUEtiapine FUMARATE 100 MG TABLET (FP) PO SCH (21:18)
[2021-07-14] MEDS: MELATONIN 5 MG TABLETS PO SCH (21:18)
[2021-07-15] MEDS ORDERED: methaDONE HCL 40 MG DISPERSABLE TABLET ONE (03:32)
[2021-07-15] MEDS ORDERED: methaDONE HCL 10 MG TABLET ONE (03:32)
[2021-07-15] MEDS: GABAPENTIN 300 MG CAPSULE PO SCH ×3 (06:16→21:26)
[2021-07-15] MEDS: IBUPROFEN 400 MG TABLET (FP) PO PRN ×2 (06:19→13:36)
[2021-07-15] MEDS: NICOTINE 10 MG CARTRIDGE (INHALER) IH PRN ×5 (06:20→22:09)
[2021-07-15] MEDS: hydrOXYzine PAMOATE 25 MG CAPSULE (FP) PO SCH ×5 (06:34→21:26)
[2021-07-15] MEDS: PANTOPRAZOLE 40 MG TABLET PO SCH (10:02)
[2021-07-15] MEDS: PRENATAL VITAMINS W/ FOLIC ACID TABLET (FP) PO SCH (10:02)
[2021-07-15] MEDS: NICOTINE 21 MG/24 HOURS TOPICAL PATCH TD SCH (10:03)
[2021-07-15] MEDS: ACETAMINOPHEN 325 MG TABLET (FP) PO PRN ×2 (10:03→18:35)
[2021-07-15] MEDS: MAGNESIUM HYDROX 2400MG/30ML ORAL SUSPENSION 30 ML CUP PO PRN (18:36)
[2021-07-15] MEDS: QUEtiapine FUMARATE 100 MG TABLET (FP) PO SCH (21:26)
[2021-07-15] MEDS: MELATONIN 5 MG TABLETS PO SCH (21:26)
[2021-07-15] MEDS: THIAMINE HCL 100 MG TABLET (FP) PO SCH (21:26)
[2021-07-16] MEDS ORDERED: methaDONE HCL 40 MG DISPERSABLE TABLET ONE (03:44)
[2021-07-16] MEDS ORDERED: methaDONE HCL 10 MG TABLET ONE (03:44)
[2021-07-16] MEDS: NICOTINE 10 MG CARTRIDGE (INHALER) IH PRN ×4 (05:49→18:15)
[2021-07-16] MEDS: IBUPROFEN 400 MG TABLET (FP) PO PRN ×2 (05:51→14:19)
[2021-07-16] MEDS: GABAPENTIN 300 MG CAPSULE PO SCH ×3 (05:52→21:38)
[2021-07-16] MEDS: hydrOXYzine PAMOATE 25 MG CAPSULE (FP) PO SCH ×2 (05:54→10:26)
[2021-07-16] MEDS: PRENATAL VITAMINS W/ FOLIC ACID TABLET (FP) PO SCH (10:26)
[2021-07-16] MEDS: PANTOPRAZOLE 40 MG TABLET PO SCH (10:26)
[2021-07-16] MEDS: NICOTINE 21 MG/24 HOURS TOPICAL PATCH TD SCH (10:27)
[2021-07-16] MEDS: ACETAMINOPHEN 325 MG TABLET (FP) PO PRN ×2 (10:28→18:20)
[2021-07-16] MEDS ORDERED: METHOCARBAMOL 500 MG TABLET PO ONE (14:28)
[2021-07-16] MEDS: hydrOXYzine PAMOATE 25 MG CAPSULE (FP) PO PRN (18:17)
[2021-07-16] MEDS: QUEtiapine FUMARATE 100 MG TABLET (FP) PO SCH (21:38)
[2021-07-16] MEDS: MELATONIN 5 MG TABLETS PO SCH (21:38)
[2021-07-16] MEDS: THIAMINE HCL 100 MG TABLET (FP) PO SCH (21:38)
[2021-07-16] MEDS: METHOCARBAMOL 500 MG TABLET PO SCH (21:40)
[2021-07-17] MEDS ORDERED: methaDONE HCL 10 MG TABLET ONE (04:27)
[2021-07-17] MEDS ORDERED: methaDONE HCL 40 MG DISPERSABLE TABLET ONE (04:27)
[2021-07-17] MEDS: NICOTINE 10 MG CARTRIDGE (INHALER) IH PRN ×5 (06:05→22:18)
[2021-07-17] MEDS: GABAPENTIN 300 MG CAPSULE PO SCH ×3 (06:06→21:35)
[2021-07-17] MEDS: METHOCARBAMOL 500 MG TABLET PO SCH ×3 (06:07→21:38)
[2021-07-17] MEDS: IBUPROFEN 400 MG TABLET (FP) PO PRN ×3 (06:11→21:36)
[2021-07-17] MEDS: PANTOPRAZOLE 40 MG TABLET PO SCH (10:26)
[2021-07-17] MEDS: NICOTINE 21 MG/24 HOURS TOPICAL PATCH TD SCH (10:26)
[2021-07-17] MEDS: PRENATAL VITAMINS W/ FOLIC ACID TABLET (FP) PO SCH (10:26)
[2021-07-17] MEDS: hydrOXYzine PAMOATE 25 MG CAPSULE (FP) PO PRN ×3 (10:27→21:36)
[2021-07-17] MEDS: ACETAMINOPHEN 325 MG TABLET (FP) PO PRN ×2 (10:27→17:53)
[2021-07-17] MEDS: MAGNESIUM HYDROX 2400MG/30ML ORAL SUSPENSION 30 ML CUP PO PRN (10:30)
[2021-07-17] MEDS: QUEtiapine FUMARATE 100 MG TABLET (FP) PO SCH (21:35)
[2021-07-17] MEDS: MELATONIN 5 MG TABLETS PO SCH (21:37)
[2021-07-17] MEDS: THIAMINE HCL 100 MG TABLET (FP) PO SCH (21:39)
[2021-07-18] MEDS ORDERED: methaDONE HCL 40 MG DISPERSABLE TABLET ONE (04:08)
[2021-07-18] MEDS ORDERED: methaDONE HCL 10 MG TABLET ONE (04:08)
[2021-07-18] MEDS: NICOTINE 10 MG CARTRIDGE (INHALER) IH PRN ×5 (06:16→22:25)
[2021-07-18] MEDS: IBUPROFEN 400 MG TABLET (FP) PO PRN ×3 (06:18→21:47)
[2021-07-18] MEDS: GABAPENTIN 300 MG CAPSULE PO SCH ×3 (06:18→21:45)
[2021-07-18] MEDS: METHOCARBAMOL 500 MG TABLET PO SCH ×3 (06:18→21:45)
[2021-07-18] MEDS: NICOTINE 21 MG/24 HOURS TOPICAL PATCH TD SCH (10:40)
[2021-07-18] MEDS: PRENATAL VITAMINS W/ FOLIC ACID TABLET (FP) PO SCH (10:40)
[2021-07-18] MEDS: hydrOXYzine PAMOATE 25 MG CAPSULE (FP) PO PRN ×3 (10:41→21:45)
[2021-07-18] MEDS: PANTOPRAZOLE 40 MG TABLET PO SCH (10:41)
[2021-07-18] MEDS: ACETAMINOPHEN 325 MG TABLET (FP) PO PRN ×2 (10:42→18:13)
[2021-07-18 13:21] LABS: SYPHILIS W/ RPR CONF NON-REACTIVE (NONREACTIVE)
[2021-07-18] MEDS: MELATONIN 5 MG TABLETS PO SCH (21:44)
[2021-07-18] MEDS: THIAMINE HCL 100 MG TABLET (FP) PO SCH (21:45)
[2021-07-18] MEDS: QUEtiapine FUMARATE 100 MG TABLET (FP) PO SCH (21:45)
[2021-07-19] MEDS ORDERED: methaDONE HCL 40 MG DISPERSABLE TABLET ONE (04:21)
[2021-07-19] MEDS ORDERED: methaDONE HCL 10 MG TABLET ONE (04:21)
[2021-07-19] MEDS: GABAPENTIN 300 MG CAPSULE PO SCH ×3 (06:11→21:48)
[2021-07-19] MEDS: IBUPROFEN 400 MG TABLET (FP) PO PRN ×3 (06:13→21:48)
[2021-07-19] MEDS: METHOCARBAMOL 500 MG TABLET PO SCH (06:16)
[2021-07-19] MEDS: hydrOXYzine PAMOATE 25 MG CAPSULE (FP) PO PRN ×3 (06:17→18:12)
[2021-07-19] MEDS: NICOTINE 10 MG CARTRIDGE (INHALER) IH PRN ×5 (06:17→22:08)
[2021-07-19] MEDS: NICOTINE 21 MG/24 HOURS TOPICAL PATCH TD SCH (10:22)
[2021-07-19] MEDS: ACETAMINOPHEN 325 MG TABLET (FP) PO PRN ×2 (10:24→18:12)
[2021-07-19] MEDS: PRENATAL VITAMINS W/ FOLIC ACID TABLET (FP) PO SCH (10:24)
[2021-07-19] MEDS: PANTOPRAZOLE 40 MG TABLET PO SCH (10:24)
[2021-07-19] MEDS: MAGNESIUM HYDROX 2400MG/30ML ORAL SUSPENSION 30 ML CUP PO PRN (10:26)
[2021-07-19] MEDS: MELATONIN 5 MG TABLETS PO SCH (21:48)
[2021-07-19] MEDS: THIAMINE HCL 100 MG TABLET (FP) PO SCH (21:48)
[2021-07-19] MEDS: QUEtiapine FUMARATE 100 MG TABLET (FP) PO SCH (21:48)
[2021-07-20] MEDS ORDERED: methaDONE HCL 40 MG DISPERSABLE TABLET ONE (05:45)
[2021-07-20] MEDS ORDERED: methaDONE HCL 10 MG TABLET ONE (05:45)
[2021-07-20] MEDS: GABAPENTIN 300 MG CAPSULE PO SCH ×3 (06:06→21:34)
[2021-07-20] MEDS: IBUPROFEN 400 MG TABLET (FP) PO PRN ×3 (06:06→21:34)
[2021-07-20] MEDS: NICOTINE 10 MG CARTRIDGE (INHALER) IH PRN ×5 (06:08→22:17)
[2021-07-20] MEDS: PRENATAL VITAMINS W/ FOLIC ACID TABLET (FP) PO SCH (10:20)
[2021-07-20] MEDS: ACETAMINOPHEN 325 MG TABLET (FP) PO PRN ×2 (10:20→18:18)
[2021-07-20] MEDS: PANTOPRAZOLE 40 MG TABLET PO SCH (10:20)
[2021-07-20] MEDS: hydrOXYzine PAMOATE 25 MG CAPSULE (FP) PO PRN ×3 (10:21→18:18)
[2021-07-20] MEDS: METHOCARBAMOL 500 MG TABLET PO PRN ×2 (10:23→18:18)
[2021-07-20] MEDS: NICOTINE 21 MG/24 HOURS TOPICAL PATCH TD SCH (10:24)
[2021-07-20] MEDS: THIAMINE HCL 100 MG TABLET (FP) PO SCH (21:34)
[2021-07-20] MEDS: QUEtiapine FUMARATE 50 MG TABLET PO SCH (21:35)
[2021-07-21] MEDS ORDERED: methaDONE HCL 40 MG DISPERSABLE TABLET ONE (04:07)
[2021-07-21] MEDS ORDERED: methaDONE HCL 10 MG TABLET ONE (04:07)
[2021-07-21] MEDS: NICOTINE 10 MG CARTRIDGE (INHALER) IH PRN ×5 (06:04→22:34)
[2021-07-21] MEDS: IBUPROFEN 400 MG TABLET (FP) PO PRN ×3 (06:05→21:33)
[2021-07-21] MEDS: GABAPENTIN 300 MG CAPSULE PO SCH ×3 (06:05→21:32)
[2021-07-21] MEDS: NICOTINE 21 MG/24 HOURS TOPICAL PATCH TD SCH (10:17)
[2021-07-21] MEDS: ACETAMINOPHEN 325 MG TABLET (FP) PO PRN ×2 (10:17→18:31)
[2021-07-21] MEDS: PRENATAL VITAMINS W/ FOLIC ACID TABLET (FP) PO SCH (10:17)
[2021-07-21] MEDS: METHOCARBAMOL 500 MG TABLET PO PRN ×3 (10:18→21:32)
[2021-07-21] MEDS: PANTOPRAZOLE 40 MG TABLET PO SCH (10:18)
[2021-07-21] MEDS: hydrOXYzine PAMOATE 25 MG CAPSULE (FP) PO PRN ×3 (10:19→18:32)
[2021-07-21] MEDS: THIAMINE HCL 100 MG TABLET (FP) PO SCH (21:32)
[2021-07-21] MEDS: QUEtiapine FUMARATE 50 MG TABLET PO SCH (21:32)
[2021-07-22] MEDS ORDERED: methaDONE HCL 40 MG DISPERSABLE TABLET ONE (03:22)
[2021-07-22] MEDS ORDERED: methaDONE HCL 10 MG TABLET ONE (03:22)
[2021-07-22] MEDS: GABAPENTIN 300 MG CAPSULE PO SCH ×3 (07:02→22:17)
[2021-07-22] MEDS: NICOTINE 10 MG CARTRIDGE (INHALER) IH PRN ×3 (07:02→22:19)
[2021-07-22] MEDS: IBUPROFEN 400 MG TABLET (FP) PO PRN ×3 (07:02→18:47)
[2021-07-22] MEDS: PRENATAL VITAMINS W/ FOLIC ACID TABLET (FP) PO SCH (10:00)
[2021-07-22] MEDS: PANTOPRAZOLE 40 MG TABLET PO SCH (10:01)
[2021-07-22] MEDS: NICOTINE 21 MG/24 HOURS TOPICAL PATCH TD SCH (10:01)
[2021-07-22] MEDS: hydrOXYzine PAMOATE 25 MG CAPSULE (FP) PO PRN ×2 (10:01→18:47)
[2021-07-22] MEDS: METHOCARBAMOL 500 MG TABLET PO PRN ×2 (10:02→18:47)
[2021-07-22] MEDS: ACETAMINOPHEN 325 MG TABLET (FP) PO PRN (10:02)
[2021-07-22] MEDS: MAGNESIUM HYDROX 2400MG/30ML ORAL SUSPENSION 30 ML CUP PO PRN (18:48)
[2021-07-22] MEDS ORDERED: QUEtiapine FUMARATE 25 MG TABLET ONE (20:05)
[2021-07-22] MEDS: THIAMINE HCL 100 MG TABLET (FP) PO SCH (22:17)
[2021-07-22] MEDS: QUEtiapine FUMARATE 50 MG TABLET PO SCH (22:17)
[2021-07-23] MEDS ORDERED: methaDONE HCL 40 MG DISPERSABLE TABLET ONE (03:15)
[2021-07-23] MEDS ORDERED: methaDONE HCL 10 MG TABLET ONE (03:15)
[2021-07-23] MEDS: GABAPENTIN 300 MG CAPSULE PO SCH ×3 (06:14→21:40)
[2021-07-23] MEDS: NICOTINE 10 MG CARTRIDGE (INHALER) IH PRN ×4 (06:16→21:38)
[2021-07-23] MEDS: hydrOXYzine PAMOATE 25 MG CAPSULE (FP) PO PRN ×2 (07:49→21:42)
[2021-07-23] MEDS: IBUPROFEN 400 MG TABLET (FP) PO PRN ×3 (07:49→21:41)
[2021-07-23] MEDS: PRENATAL VITAMINS W/ FOLIC ACID TABLET (FP) PO SCH (09:09)
[2021-07-23] MEDS: PANTOPRAZOLE 40 MG TABLET PO SCH (09:09)
[2021-07-23] MEDS: ACETAMINOPHEN 325 MG TABLET (FP) PO PRN (09:09)
[2021-07-23] MEDS: METHOCARBAMOL 500 MG TABLET PO PRN ×2 (09:10→21:40)
[2021-07-23] MEDS: NICOTINE 21 MG/24 HOURS TOPICAL PATCH TD SCH (09:10)
[2021-07-23] MEDS: QUEtiapine FUMARATE 50 MG TABLET PO SCH (21:40)
[2021-07-23] MEDS: THIAMINE HCL 100 MG TABLET (FP) PO SCH (21:41)
[2021-07-24] MEDS ORDERED: methaDONE HCL 40 MG DISPERSABLE TABLET ONE (03:53)
[2021-07-24] MEDS ORDERED: methaDONE HCL 10 MG TABLET ONE (03:53)
[2021-07-24] MEDS: NICOTINE 10 MG CARTRIDGE (INHALER) IH PRN ×5 (06:24→21:45)
[2021-07-24] MEDS: GABAPENTIN 300 MG CAPSULE PO SCH ×3 (06:25→21:40)
[2021-07-24] MEDS: IBUPROFEN 400 MG TABLET (FP) PO PRN ×3 (06:25→21:43)
[2021-07-24] MEDS: PANTOPRAZOLE 40 MG TABLET PO SCH (10:17)
[2021-07-24] MEDS: NICOTINE 21 MG/24 HOURS TOPICAL PATCH TD SCH (10:17)
[2021-07-24] MEDS: PRENATAL VITAMINS W/ FOLIC ACID TABLET (FP) PO SCH (10:17)
[2021-07-24] MEDS: ACETAMINOPHEN 325 MG TABLET (FP) PO PRN ×2 (10:19→18:10)
[2021-07-24] MEDS: hydrOXYzine PAMOATE 25 MG CAPSULE (FP) PO PRN ×3 (10:20→18:10)
[2021-07-24] MEDS: METHOCARBAMOL 500 MG TABLET PO PRN ×3 (10:20→21:40)
[2021-07-24] MEDS: QUEtiapine FUMARATE 50 MG TABLET PO SCH (21:39)
[2021-07-24] MEDS: SUVOREXANT 10 MG TABLET PO PRN (21:43)
[2021-07-24] MEDS: THIAMINE HCL 100 MG TABLET (FP) PO SCH (21:53)
[2021-07-25] MEDS ORDERED: methaDONE HCL 10 MG TABLET ONE (04:09)
[2021-07-25] MEDS ORDERED: methaDONE HCL 40 MG DISPERSABLE TABLET ONE (04:10)
[2021-07-25] MEDS: IBUPROFEN 400 MG TABLET (FP) PO PRN ×3 (05:27→21:47)
[2021-07-25] MEDS: GABAPENTIN 300 MG CAPSULE PO SCH ×3 (05:28→21:48)
[2021-07-25] MEDS: NICOTINE 10 MG CARTRIDGE (INHALER) IH PRN ×4 (05:30→21:47)
[2021-07-25] MEDS: hydrOXYzine PAMOATE 25 MG CAPSULE (FP) PO PRN ×3 (10:16→18:21)
[2021-07-25] MEDS: METHOCARBAMOL 500 MG TABLET PO PRN ×3 (10:16→21:47)
[2021-07-25] MEDS: PRENATAL VITAMINS W/ FOLIC ACID TABLET (FP) PO SCH (10:16)
[2021-07-25] MEDS: PANTOPRAZOLE 40 MG TABLET PO SCH (10:16)
[2021-07-25] MEDS: NICOTINE 21 MG/24 HOURS TOPICAL PATCH TD SCH (10:17)
[2021-07-25] MEDS: ACETAMINOPHEN 325 MG TABLET (FP) PO PRN ×2 (10:17→18:20)
[2021-07-25] MEDS: THIAMINE HCL 100 MG TABLET (FP) PO SCH (21:48)
[2021-07-25] MEDS: QUEtiapine FUMARATE 50 MG TABLET PO SCH (21:48)
[2021-07-25] MEDS: SUVOREXANT 10 MG TABLET PO PRN (21:50)
[2021-07-26] MEDS ORDERED: methaDONE HCL 10 MG TABLET ONE (04:05)
[2021-07-26] MEDS ORDERED: methaDONE HCL 40 MG DISPERSABLE TABLET ONE (04:06)
[2021-07-26] MEDS: IBUPROFEN 400 MG TABLET (FP) PO PRN (05:41)
[2021-07-26] MEDS: GABAPENTIN 300 MG CAPSULE PO SCH ×3 (05:42→21:45)
[2021-07-26] MEDS: NICOTINE 10 MG CARTRIDGE (INHALER) IH PRN ×4 (05:45→21:47)
[2021-07-26] MEDS ORDERED: COLLOIDAL OATMEAL 1 BAR EACH TP PRN (09:30)
[2021-07-26] MEDS: PANTOPRAZOLE 40 MG TABLET PO SCH (10:26)
[2021-07-26] MEDS: ACETAMINOPHEN 325 MG TABLET (FP) PO PRN (10:26)
[2021-07-26] MEDS: NICOTINE 21 MG/24 HOURS TOPICAL PATCH TD SCH (10:26)
[2021-07-26] MEDS: METHOCARBAMOL 500 MG TABLET PO PRN ×2 (10:26→21:45)
[2021-07-26] MEDS: hydrOXYzine PAMOATE 25 MG CAPSULE (FP) PO PRN ×2 (10:26→14:34)
[2021-07-26] MEDS: PRENATAL VITAMINS W/ FOLIC ACID TABLET (FP) PO SCH (10:26)
[2021-07-26] MEDS: IBUPROFEN 600 MG TABLET (FP) PO PRN ×2 (12:39→21:46)
[2021-07-26] MEDS: QUEtiapine FUMARATE 50 MG TABLET PO SCH (21:44)
[2021-07-26] MEDS: THIAMINE HCL 100 MG TABLET (FP) PO SCH (21:45)
[2021-07-26] MEDS: SUVOREXANT 10 MG TABLET PO PRN (21:46)
[2021-07-27] MEDS ORDERED: methaDONE HCL 40 MG DISPERSABLE TABLET ONE (03:10)
[2021-07-27] MEDS ORDERED: methaDONE HCL 10 MG TABLET ONE (03:10)
[2021-07-27] MEDS: NICOTINE 10 MG CARTRIDGE (INHALER) IH PRN ×4 (05:41→18:53)
[2021-07-27] MEDS: GABAPENTIN 300 MG CAPSULE PO SCH ×3 (05:43→21:49)
[2021-07-27] MEDS: IBUPROFEN 600 MG TABLET (FP) PO PRN ×3 (05:43→21:51)
[2021-07-27] MEDS: hydrOXYzine PAMOATE 25 MG CAPSULE (FP) PO PRN (10:29)
[2021-07-27] MEDS: PRENATAL VITAMINS W/ FOLIC ACID TABLET (FP) PO SCH (10:29)
[2021-07-27] MEDS: PANTOPRAZOLE 40 MG TABLET PO SCH (10:29)
[2021-07-27] MEDS: NICOTINE 21 MG/24 HOURS TOPICAL PATCH TD SCH (10:29)
[2021-07-27] MEDS: METHOCARBAMOL 500 MG TABLET PO PRN ×2 (10:29→21:51)
[2021-07-27] MEDS: ACETAMINOPHEN 325 MG TABLET (FP) PO PRN (10:29)
[2021-07-27] MEDS: MAGNESIUM HYDROX 2400MG/30ML ORAL SUSPENSION 30 ML CUP PO PRN (11:10)
[2021-07-27] MEDS: hydrOXYzine PAMOATE 50 MG CAPSULE (FP) PO PRN ×2 (14:31→21:51)
[2021-07-27] MEDS: QUEtiapine FUMARATE 50 MG TABLET PO SCH (21:49)
[2021-07-27] MEDS: THIAMINE HCL 100 MG TABLET (FP) PO SCH (21:49)
[2021-07-27] MEDS: SUVOREXANT 10 MG TABLET PO PRN (21:54)
[2021-07-28] MEDS ORDERED: methaDONE HCL 10 MG TABLET ONE (05:16)
[2021-07-28] MEDS ORDERED: methaDONE HCL 40 MG DISPERSABLE TABLET ONE (05:16)
[2021-07-28] MEDS: NICOTINE 10 MG CARTRIDGE (INHALER) IH PRN ×3 (05:40→21:46)
[2021-07-28] MEDS: GABAPENTIN 300 MG CAPSULE PO SCH ×3 (05:40→21:48)
[2021-07-28] MEDS: IBUPROFEN 600 MG TABLET (FP) PO PRN ×3 (05:41→21:48)
[2021-07-28] MEDS: NICOTINE 21 MG/24 HOURS TOPICAL PATCH TD SCH (10:41)
[2021-07-28] MEDS: PANTOPRAZOLE 40 MG TABLET PO SCH (10:42)
[2021-07-28] MEDS: PRENATAL VITAMINS W/ FOLIC ACID TABLET (FP) PO SCH (10:42)
[2021-07-28] MEDS: ACETAMINOPHEN 325 MG TABLET (FP) PO PRN ×2 (10:43→17:05)
[2021-07-28] MEDS: hydrOXYzine PAMOATE 50 MG CAPSULE (FP) PO PRN ×2 (10:44→17:05)
[2021-07-28] MEDS: METHOCARBAMOL 500 MG TABLET PO PRN ×2 (15:35→21:48)
[2021-07-28] MEDS: SUVOREXANT 10 MG TABLET PO PRN (21:47)
[2021-07-28] MEDS: QUEtiapine FUMARATE 50 MG TABLET PO SCH (21:47)
[2021-07-28] MEDS: THIAMINE HCL 100 MG TABLET (FP) PO SCH (21:48)
[2021-07-29] MEDS ORDERED: methaDONE HCL 40 MG DISPERSABLE TABLET ONE (05:18)
[2021-07-29] MEDS ORDERED: methaDONE HCL 10 MG TABLET ONE (05:18)
[2021-07-29] MEDS: IBUPROFEN 600 MG TABLET (FP) PO PRN ×3 (05:51→21:28)
[2021-07-29] MEDS: GABAPENTIN 300 MG CAPSULE PO SCH ×3 (05:52→21:28)
[2021-07-29] MEDS: NICOTINE 10 MG CARTRIDGE (INHALER) IH PRN ×4 (05:53→21:28)
[2021-07-29] MEDS: NICOTINE 21 MG/24 HOURS TOPICAL PATCH TD SCH (10:34)
[2021-07-29] MEDS: PRENATAL VITAMINS W/ FOLIC ACID TABLET (FP) PO SCH (10:35)
[2021-07-29] MEDS: PANTOPRAZOLE 40 MG TABLET PO SCH (10:35)
[2021-07-29] MEDS: ACETAMINOPHEN 325 MG TABLET (FP) PO PRN (10:38)
[2021-07-29] MEDS: METHOCARBAMOL 500 MG TABLET PO PRN ×3 (10:39→21:28)
[2021-07-29] MEDS: hydrOXYzine PAMOATE 50 MG CAPSULE (FP) PO PRN ×3 (10:39→21:31)
[2021-07-29] MEDS ORDERED: hydrOXYzine PAMOATE 25 MG CAPSULE (FP) PO ONE ×2 (15:07→21:30)
[2021-07-29] MEDS: QUEtiapine FUMARATE 50 MG TABLET PO SCH (21:28)
[2021-07-29] MEDS: THIAMINE HCL 100 MG TABLET (FP) PO SCH (21:28)
[2021-07-29] MEDS: SUVOREXANT 10 MG TABLET PO PRN (21:31)
[2021-07-30] MEDS ORDERED: methaDONE HCL 10 MG TABLET ONE (03:35)
[2021-07-30] MEDS ORDERED: methaDONE HCL 40 MG DISPERSABLE TABLET ONE (03:36)
[2021-07-30] MEDS: IBUPROFEN 600 MG TABLET (FP) PO PRN ×3 (06:07→21:39)
[2021-07-30] MEDS: GABAPENTIN 300 MG CAPSULE PO SCH ×3 (06:07→21:37)
[2021-07-30] MEDS: NICOTINE 10 MG CARTRIDGE (INHALER) IH PRN ×4 (06:07→18:26)
[2021-07-30] MEDS: PRENATAL VITAMINS W/ FOLIC ACID TABLET (FP) PO SCH (10:36)
[2021-07-30] MEDS ORDERED: hydrOXYzine PAMOATE 25 MG CAPSULE (FP) PO ONE (10:37)
[2021-07-30] MEDS: METHOCARBAMOL 500 MG TABLET PO PRN ×2 (10:38→18:26)
[2021-07-30] MEDS: PANTOPRAZOLE 40 MG TABLET PO SCH (10:38)
[2021-07-30] MEDS: NICOTINE 21 MG/24 HOURS TOPICAL PATCH TD SCH (10:39)
[2021-07-30] MEDS: hydrOXYzine PAMOATE 50 MG CAPSULE (FP) PO PRN ×2 (10:39→18:26)
[2021-07-30] MEDS: ACETAMINOPHEN 325 MG TABLET (FP) PO PRN (10:40)
[2021-07-30] MEDS: THIAMINE HCL 100 MG TABLET (FP) PO SCH (21:37)
[2021-07-30] MEDS: QUEtiapine FUMARATE 50 MG TABLET PO SCH (21:37)
[2021-07-30] MEDS: SUVOREXANT 10 MG TABLET PO PRN (21:39)
[2021-07-31] MEDS ORDERED: methaDONE HCL 10 MG TABLET ONE (04:23)
[2021-07-31] MEDS ORDERED: methaDONE HCL 40 MG DISPERSABLE TABLET ONE (04:24)
[2021-07-31] MEDS: NICOTINE 10 MG CARTRIDGE (INHALER) IH PRN ×4 (06:18→21:44)
[2021-07-31] MEDS: IBUPROFEN 600 MG TABLET (FP) PO PRN ×3 (06:19→21:44)
[2021-07-31] MEDS: GABAPENTIN 300 MG CAPSULE PO SCH ×3 (06:19→21:44)
[2021-07-31 07:23] VITALS: PULSE 73
[2021-07-31] MEDS: PRENATAL VITAMINS W/ FOLIC ACID TABLET (FP) PO SCH (10:30)
[2021-07-31] MEDS: NICOTINE 21 MG/24 HOURS TOPICAL PATCH TD SCH (10:30)
[2021-07-31] MEDS: hydrOXYzine PAMOATE 50 MG CAPSULE (FP) PO PRN ×2 (10:31→17:18)
[2021-07-31] MEDS: METHOCARBAMOL 500 MG TABLET PO PRN ×2 (10:31→17:18)
[2021-07-31] MEDS: PANTOPRAZOLE 40 MG TABLET PO SCH (10:31)
[2021-07-31] MEDS: THIAMINE HCL 100 MG TABLET (FP) PO SCH (21:44)
[2021-07-31] MEDS: QUEtiapine FUMARATE 50 MG TABLET PO SCH (21:44)
[2021-07-31] MEDS: SUVOREXANT 10 MG TABLET PO PRN (21:46)
[2021-08-01] MEDS ORDERED: methaDONE HCL 10 MG TABLET ONE (04:19)
[2021-08-01] MEDS ORDERED: methaDONE HCL 40 MG DISPERSABLE TABLET ONE (04:19)
[2021-08-01] MEDS: IBUPROFEN 600 MG TABLET (FP) PO PRN (05:42)
[2021-08-01] MEDS: GABAPENTIN 300 MG CAPSULE PO SCH (05:42)
[2021-08-01] MEDS: NICOTINE 10 MG CARTRIDGE (INHALER) IH PRN ×2 (05:42→09:52)
[2021-08-01 07:23] VITALS: BP 105/70; TEMP 98.2
[2021-08-01] MEDS: PRENATAL VITAMINS W/ FOLIC ACID TABLET (FP) PO SCH (09:48)
[2021-08-01] MEDS: PANTOPRAZOLE 40 MG TABLET PO SCH (09:48)
[2021-08-01] MEDS: hydrOXYzine PAMOATE 50 MG CAPSULE (FP) PO PRN (09:50)
[2021-08-01] MEDS: ACETAMINOPHEN 325 MG TABLET (FP) PO PRN (09:50)
[2021-08-01] MEDS: METHOCARBAMOL 500 MG TABLET PO PRN (09:50)
[2021-08-01] MEDS: NICOTINE 21 MG/24 HOURS TOPICAL PATCH TD SCH (09:52)
== END 2021-08-01 10:00 | disposition home or self-care (01) | DRG 895 ==
LOC: YASAS 13:42 → Y5N 14:52
PROVIDERS: ADMIT Allergy & Immunology; ATTEND Psychiatry & Neurology Pain Medicine
PROC: HZ42ZZZ Group Counseling for Substance Abuse Treatment, Cognitive-Behavioral (ICD-10-PCS; principal; 2021-07-12)
DX: F10.20 Alcohol dependence, uncomplicated (principal); F11.20 Opioid dependence, uncomplicated; F17.210 Nicotine dependence, cigarettes, uncomplicated; F43.10 Post-traumatic stress disorder, unspecified; F32.A Depression, unspecified; F41.9 Anxiety disorder, unspecified; F90.9 Attention-deficit hyperactivity disorder, unspecified type; I10 Essential (primary) hypertension; B18.2 Chronic viral hepatitis C; M19.90 Unspecified osteoarthritis, unspecified site; G89.29 Other chronic pain; G40.909 Epilepsy, unspecified, not intractable, without status epilepticus; Z88.8 Allergy status to other drugs, medicaments and biological substances; Z87.820 Personal history of traumatic brain injury; Z56.0 Unemployment, unspecified; Z59.00 Homelessness unspecified
CPT/HCPCS: 36415; 80053; 81003; 85027; 86780; 86803; 87522; 93005; 93010